=== PATIENT | male | born 1975 | race Caucasian/White ===

== ENCOUNTER 2021-04-07 10:22 | Emergency (ER) | payer OTHER ==
[2021-04-07 11:56] LABS: HEMOGLOBIN 13.8 gm/dl (14.0-17.5); RED BLOOD COUNT 4.3 M/UL (4.20-5.50); WHITE BLOOD COUNT 4.1 K/UL (4.5-11.0)
[2021-04-07 12:27] LABS: BUN/CREATININE RATIO 15 (0-10)
== END 2021-04-07 15:33 | disposition home or self-care (01) ==
LOC: ER1 10:22
PROVIDERS: Physician Assistant
DX: E11.65 Type 2 diabetes mellitus with hyperglycemia (principal); E11.40 Type 2 diabetes mellitus with diabetic neuropathy, unspecified; Z90.89 Acquired absence of other organs
CPT/HCPCS: 80053; 82009; 82962; 85025; 96374; 96375; 99284; J2405